=== PATIENT | female | born 1980 | race Caucasian/White ===

== ENCOUNTER 2018-07-20 07:44 | Day surgery (SDC) | payer MEDICAID ==
[2018-07-20] MEDS ORDERED: Midazolam 1 MG/ML 2 ML SDV IV ONE (07:45)
[2018-07-20] MEDS ORDERED: Neostigmine Methylsulfate 10 MG/10 ML MDV IV ONE (07:45)
[2018-07-20] MEDS ORDERED: Dexamethasone 4 MG/ML SDV IV ONE (07:45)
[2018-07-20] MEDS ORDERED: Glycopyrrolate 0.2 MG/ML 2 ML SDV IV ONE (07:45)
[2018-07-20] MEDS ORDERED: Propofol 200 MG/20 ML SDV IV ONE (07:45)
[2018-07-20] MEDS ORDERED: Rocuronium 100 MG/10 ML MDV IV ONE (07:45)
[2018-07-20] MEDS ORDERED: Lidocaine 2% 20 ML MDV INJECT ONE (07:45)
[2018-07-20] MEDS ORDERED: Ondansetron 4 MG/2 ML SDV IV ONE (07:45)
[2018-07-20] MEDS ORDERED: Ketorolac 30 MG/ML SDV IVPUSH ONE (07:45)
[2018-07-20] MEDS ORDERED: fentaNYL 100 MCG/2 ML SDV IV ONE (07:45)
[2018-07-20] MEDS ORDERED: Lactated Ringers 1,000 ML IV SCH (08:30)
[2018-07-20] MEDS ORDERED: Clindamycin Phosphate 600 MG/4 ML SDV ONE (09:55)
[2018-07-20] MEDS ORDERED: Sodium Chloride 0.9% 100 ML ONE (09:56)
[2018-07-20] MEDS ORDERED: Clindamycin Phosphate 600 MG in Sodium Chloride 0.9% 100 ML IV ONE (10:30)
[2018-07-20] MEDS ORDERED: Morphine 2 MG/ML Syringe IVPUSH PRN (11:56)
[2018-07-20] MEDS ORDERED: Ondansetron 4 MG/2 ML SDV IVPUSH PRN (11:56)
[2018-07-20] MEDS ORDERED: Sodium Chloride 0.9% 10 ML Syringe FLUSH PRN (12:07)
[2018-07-20] MEDS: Acetaminophen/oxyCODONE 325-5 MG Tab PO PRN (16:59)
--- NOTE | 2018-07-20 18:01 | OR ---
DATE: 07/20/2018 PREOPERATIVE DIAGNOSIS: Acalculous cholecystitis. Biliary colic with HIDA ejection fraction of 14%. POSTOPERATIVE DIAGNOSIS: Acalculous cholecystitis. Biliary colic with HIDA ejection fraction of 14%. PROCEDURE: Laparoscopic cholecystectomy. ANESTHESIA: General. ESTIMATED BLOOD LOSS: Minimal. SPECIMEN: Gallbladder. INDICATION FOR PROCEDURE: This 38-year-old female, who has had postprandial abdominal pain and nausea over the last year. Ultrasound does not show stones. However, HIDA ejection fraction of the gallbladder is 14%, 30 is lower limits of normal. PROCEDURE IN DETAIL: After adequate preparation. Infraumbilical incision was made. A Veress needle placed intra-abdominally for insufflation. Veress needle was exchanged for a 5-mm trocar, the 3 other trocars were placed in the abdomen under direct vision. Examination of the abdomen is normal. The gallbladder was small, thin-walled and blue in color. The cystic triangle structures were dissected free, and these were separately triply clipped and divided. The gallbladder was then taken off the liver bed using blunt sharp and Bovie dissection. There was some spillage of bile and at the apex of the gallbladder. This was suctioned clear. The gallbladder was brought out through the epigastric trocar site. The abdomen was desufflated, and the skin was closed with Monocryl. [facility] /[id number]
[2018-07-21] MEDS: Acetaminophen/oxyCODONE 325-5 MG Tab PO PRN ×2 (00:28→05:29)
== END 2018-07-21 09:55 | disposition home or self-care (01) ==
LOC: DL.SDS 07:44 → EDSTATUS 09:00 → DL.MS 12:01 → DL.SDS 07-21 09:55
PROVIDERS: ATTEND Surgery
DX: K81.1 Chronic cholecystitis (principal); Z88.0 Allergy status to penicillin; Z88.6 Allergy status to analgesic agent; Z88.1 Allergy status to other antibiotic agents; Z88.5 Allergy status to narcotic agent; Z88.2 Allergy status to sulfonamides
CPT/HCPCS: 47562; A9270; J1100; J1885; J2001; J2250; J2270; J2405; J2704; J2710; J3010; J3490; J7050; J7120

== ENCOUNTER 2018-12-01 07:59 | Day surgery (SDC) | payer MEDICAID ==
[~2018-12-01 07:59] MED LIST: Sodium Chloride 0.9% 10 ML Syringe FLUSH PRN
[2018-12-01] MEDS ORDERED: Clindamycin Phosphate 600 MG in Sodium Chloride 0.9% 100 ML IV ONE (08:00)
[2018-12-01] MEDS ORDERED: fentaNYL 100 MCG/2 ML SDV IV ONE (08:00)
[2018-12-01] MEDS ORDERED: Dexamethasone 4 MG/ML SDV IV ONE (08:00)
[2018-12-01] MEDS ORDERED: Ketorolac 30 MG/ML SDV IVPUSH ONE (08:00)
[2018-12-01] MEDS ORDERED: Lidocaine 1% 30 ML SDV INJECT ONE ×4 (08:00→12:54)
[2018-12-01] MEDS ORDERED: Lactated Ringers 1,000 ML IV ONE (08:00)
[2018-12-01] MEDS ORDERED: Propofol 200 MG/20 ML SDV IV ONE (08:00)
[2018-12-01] MEDS ORDERED: Ondansetron 4 MG/2 ML SDV IV ONE (08:00)
[2018-12-01] MEDS ORDERED: Midazolam 1 MG/ML 2 ML SDV IV ONE (08:00)
[2018-12-01] MEDS ORDERED: Bupivacaine 0.5% 30 ML SDV INJECT ONE ×4 (08:00→12:54)
[2018-12-01] MEDS ORDERED: Lactated Ringers 1,000 ML IV SCH (09:15)
[2018-12-01] MEDS ORDERED: Bupivacaine 0.5% 30 ML SDV ONE (09:24)
[2018-12-01] MEDS ORDERED: Lidocaine 1% 30 ML SDV ONE (09:24)
[2018-12-01] MEDS ORDERED: Acetaminophen/oxyCODONE 325-5 MG Tab PO PRN (13:08)
--- NOTE | 2018-12-01 13:11 | PCM.OPNOTE ---
- General Post-Op/Procedure Note Date of Surgery/Procedure: 12/01/18 Operative Procedure(s): left lateral ankle ligament repair/brostrom procedure, left 1st metatarsal bunionectomy/osteotomy, 5th metatarsal osteotomy/ bunionectomy. Pre Op Diagnosis: left ankle ligament tear ATFL, left foot painful bunion and tailors bunion Post-Op Diagnosis: chyna Anesthesia Technique: General LMA, Local Primary Surgeon: Lizabeth Segovia Anesthesia Provider: Kendall Fortune EBL in mLs: 50 Complications: none Condition: Good Free Text/Narrative:: Pt tolerated procedure well and was transported to recovery with vascualar status intact to left LE. Inman 3.5 bone anchor to fibula, 3.0 and 2.0 cannulated screws to bunionectomy sites. Well padded L&U splint applied with foot in slight eversion.
--- NOTE | 2018-12-02 12:11 | OR ---
DATE: 12/01/2018 PREOPERATIVE DIAGNOSES: 1. Left ankle ligament tear at the anterior talofibular ligament/ankle instability. 2. Left foot painful bunion. 3. Left foot painful tailor's bunion. POSTOPERATIVE DIAGNOSES: 1. Left ankle ligament tear at the anterior talofibular ligament/ankle instability. 2. Left foot painful bunion. 3. Left foot painful tailor's bunion. PROCEDURE PERFORMED: 1. Left ankle ligament repair/Brostrom procedure. 2. Left foot 1st metatarsal osteotomy/bunionectomy. 3. Left foot 5th metatarsal osteotomy/bunionectomy. ANESTHESIA: General LMA with a preoperative block of 20 mL of 1:1 mixture of 1% lidocaine plain and 0.5% Marcaine plain. TOURNIQUET TIME: 119 minutes, thigh tourniquet. ESTIMATED BLOOD LOSS: Minimal. SPECIMEN: None. COMPLICATIONS: None. INDICATIONS: Stella is a 38-year-old female who returns for recheck of her left ankle injury as well as foot pain. I have been seeing her for a couple of months for this injury. She has been doing physical therapy for the last 2 months with no relief, has had discussion that it possibly needed to get surgically repaired at this point. On July 27, she stepped into her room that had a little step and twisted the left ankle. She did go to the emergency room in [place]. They did an x-ray and placed her into an Wally wrap. The following Wednesday, it was still painful and swollen. She got another x-ray and was placed in a Cam boot with crutches. She then did get an MRI as well. She started transitioning out of the Cam boot into an ankle brace and also started physical therapy. Now, she is back in a regular shoe, but is still having a lot of pain and swelling to that ankle on the outside aspect. She also has a bunion and a tailor's bunion on that same foot that has been painful for several months now and worsening. She has tried different shoes and padding with no relief. X-rays of the left ankle reveal no signs of fracture, ankle mortise is intact. Bony fragment at the distal medial malleolus that has been present for a few years on prior x-rays. MRI of the left ankle reveals tear/rupture of the ATFL, no signs of fracture, chronic type of sprain of the deep deltoid without tear. Left foot views reveal bunion deformity present with intermetatarsal angle of 14 degrees, tailor's bunion with an intermetatarsal angle of 13 degrees. The patient voiced good understanding of the proposed procedure and possible complications and elects to have surgery at this time. DESCRIPTION OF PROCEDURE: The patient was taken to the operating room lying in a supine position. After adequate anesthesia induction as described above, the left foot and ankle were prepped and draped in the usual sterile fashion. A pneumatic thigh tourniquet was inflated to 250 mmHg. Attention was then directed to first the left ankle at the lateral aspect. A curvilinear incision was made just distal to the fibula at the lateral ankle and curving up towards the distal anterior foot. Care was taken to avoid the neurovascular bundle in this area. Sharp and blunt dissection was performed down to the level of the ankle joint capsule and inferior extensor retinaculum. Care was taken to avoid all neurovascular structures and cauterized all bleeders. It was noted that the ATFL was completely ruptured in this area. A 15 blade was used to incise the anterior and lateral ankle capsule down to the level of the peroneal tendon sheath. The tendons were visualized and appeared healthy without any tears or defects. The dissection was made in the layer the extensor retinaculum and the anterior ankle joint capsule. The periosteum was elevated from the distal fibula, and a curette and rongeur were used to create a gutter running transversely along the tip of the distal fibula down to good bleeding bone. A Aristides 3.5 Corkscrew anchor was then inserted from distal to proximal centered at the distal tip of the fibula. Care was taken to avoid entering the ankle joint or the peroneal tendon groove, and I was able to visualize this as well, and I did use fluoroscopy for that ankle view. Suture from the bone anchor was then used to suture the ATFL and anterior capsule and then secured them down to the fibula with the ankle held in an everted position. The suture was then again used to suture down the extensor retinaculum over the anterior ankle capsule for an additional stabilization to the fibula for reinforcement of the repair. The remainder of the suture was used to secure the periosteum of the fibula to the inferior retinaculum in a [id number] fashion with the foot held in an everted position throughout the procedure. The ankle was then tested and noted to be stable with inversion and talar tilt as well as anterior drawer. The area was then irrigated with copious amounts of sterile saline. Deep closure was completed with 3-0 Vicryl and skin closure was completed with 4- 0 nylon. Attention was then directed to the dorsal left foot at the 1st metatarsophalangeal joint where an approximately 6 cm linear incision was made. Sharp and blunt dissection was performed down to the level of joint capsule with care to gently retract all neurovascular bundles. An inverted-L capsulotomy was made, and the capsule was reflected to expose the distal 1st metatarsal. A hypertrophic medial eminence was noted at this time and was resected with a sagittal saw. Blunt dissection was performed in the 1st interspace to the level of the fibular sesamoid, and this was released from the adductor hallucis tendon. A sagittal saw was then used to make a Chevron-type osteotomy with a long dorsal arm, angulated in a fashion that would allow maintenance of the length upon lateral transposition of the capital fragment. The capital fragment was then laterally transposed 6 mm and impacted to bring the hallux in the near rectus alignment. A 0.062 inch K-wire was used for guidance. K-wires from the screw set were used as temporary fixation. Two partially-threaded cannulated [place] 3.0 screws were then inserted across the osteotomy site. The temporary fixation was removed. The osteotomy site was noted to be stable with axial valgus and varus forces applied with fluid range of motion of the 1st MTPJ. The 1st MTPJ was inspected, and there was a small defect at the plantar aspect, but otherwise healthy. Fluoroscopy was used throughout the procedure to verify proper reduction of deformity and screw fixation. The medial capsulorrhaphy was performed. The area was irrigated with copious amounts of sterile saline. Capsular closure was completed with 3-0 Vicryl and skin closure was completed with 4-0 nylon. The hallux was noted to be in a near rectus alignment at this time. Attention was then directed to the dorsal aspect of the 5th MTPJ where an approximately 4 cm linear incision was made. Sharp and blunt dissection was performed down to the level of the joint capsule with care to gently retract all neurovascular bundles. A linear capsulotomy was made, and the capsule was reflected to expose the distal 5th metatarsal. A hypertrophic lateral eminence was noted at this time and was resected with a sagittal saw. A sagittal saw was also used to make a chevron-type osteotomy at the 5th metatarsal. The capital fragment was transposed medially and impacted to bring the 5th toe in a near rectus alignment. A cannulated 2.0 [place] screw was inserted for fixation, and it was noted to be stable with all forces applied. Fluoroscopy was then again used to verify proper reduction and fixation. The area was then irrigated with copious amounts of sterile saline. Capsular closure was completed with 3-0 Vicryl and skin closure was completed with 4-0 nylon. The surgical sites were then dressed with Xeroform, fluffs, Webril, and a well-padded L and U splint with the foot in just slight eversion. The patient tolerated the procedure well and left the operating room for recovery with vital signs stable and in good condition with vascular status intact to the left foot as noted by immediate hyperemia upon deflation of the ankle tourniquet. The patient was then discharged home when she met hospital discharge requirements. [facility] /[id number]
== END 2018-12-01 16:19 | disposition home or self-care (01) ==
LOC: DL.SDS 07:59
PROVIDERS: ATTEND Podiatrist
DX: S93.492A Sprain of other ligament of left ankle, initial encounter (principal); M25.372 Other instability, left ankle; M21.612 Bunion of left foot; M21.622 Bunionette of left foot; E66.9 Obesity, unspecified; Z68.26 Body mass index [BMI] 26.0-26.9, adult; Z88.5 Allergy status to narcotic agent; Z88.6 Allergy status to analgesic agent; Z88.0 Allergy status to penicillin; Z88.2 Allergy status to sulfonamides; Z79.899 Other long term (current) drug therapy
CPT/HCPCS: 27698; 28110; 28296; 81025; C1713; J1100; J1885; J2001; J2250; J2405; J2704; J3010; J3490; J7050; J7120

== ENCOUNTER 2019-03-12 02:04 | Observation (INO) | payer MEDICAID ==
--- NOTE | 2019-03-12 02:02 | EDM.PDOC ---
ED HPI GENERAL MEDICAL PROBLEM - General Stated Complaint: AMBULANCE Time Seen by Provider: 03/12/19 02:00 Source of Information: Reports: Patient, EMS History Limitations: Reports: No Limitations - History of Present Illness INITIAL COMMENTS - FREE TEXT/NARRATIVE: EMS states was told CP onset tonight, en route pt would get very tense and O2 sat would drop. anxious female, states got up to bathroom tonight and suddenly felt nauseous and develop tightness & pain right lower chest area. then started feeling shaky & weak all over. Lower Chest Pain Score (Numeric/FACES): 5 - Related Data Allergies Allergy/AdvReac Type Severity Reaction Status Date / Time ampicillin Allergy Bronchospas Verified 12/01/18 08:16 ms ibuprofen Allergy Rash Verified 12/01/18 08:16 Milk Containing Products Allergy Hives Verified 12/01/18 08:16 Penicillins Allergy Bronchospas Verified 12/01/18 08:16 ms shrimp Allergy Anaphylactic Verified 12/01/18 08:16 Shock Sulfa (Sulfonamide Allergy Hives Verified 12/01/18 08:16 Antibiotics) Yeast Allergy Hives Verified 12/01/18 08:16 aspirin AdvReac Fever Verified 12/01/18 08:16 hydrocodone AdvReac Headache Verified 12/01/18 08:16 asprin related products Allergy Rash Uncoded 12/01/18 08:16 Home Meds: Home Meds Cetirizine [ZyrTEC] 10 mg PO .PRN 07/19/18 [History] Fluticasone Propionate [Flovent] 1 squirt NASBOTH .PRNBID 07/19/18 [History] Ibuprofen 400 mg PO .PRN 07/20/18 [History] Naproxen Sodium [Midol] 220 mg PO .PRN PRN 07/20/18 [History] Acetaminophen/Caffeine [Excedrin Tension Headache Cplt] 1 each PO .PRN PRN 11/30 [History] Amitriptyline [Elavil] 10 mg PO DAILY 11/30/18 [History] Multivitamin with Minerals [Multivitamins with Minerals] 1 tab PO DAILY [History] Past Medical History HEENT History: Reports: Sinusitis Other HEENT History: more seasonal Cardiovascular History: Reports: None Respiratory History: Reports: Asthma, Bronchitis, Recurrent, Other (See Below) Other Respiratory History: Asthma as a child Gastrointestinal History: Reports: GERD Genitourinary History: Reports: None [employer] History: Reports: Endometriosis Musculoskeletal History: Reports: Fracture, Other (See Below) Other Musculoskeletal History: sore joints. bone spur. right foot fracture. Ankle sprains. Ligament tear Left foot. bursitis right hip. 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 Oncologic (Cancer) History: Reports: None Dermatologic History: Reports: None - Infectious Disease History Infectious Disease History: Reports: None - Past Surgical History HEENT Surgical History: Reports: Naso-Sinus Surgery, Tonsillectomy, Other (See Below) Other HEENT Surgeries/Procedures: rhinoplasty for deviated septum Cardiovascular Surgical History: Reports: None GI Surgical History: Reports: Appendectomy, Cholecystectomy, Hernia, Inguinal, Other (See Below) Other GI Surgeries/Procedures: inguinal hernia repair Female Surgical History: Reports: Tubal Ligation, Other (See Below) Other Female Surgeries/Procedures: interutero laproscopy for IUD removal. bilateral tubal ligation Endocrine Surgical History: Reports: None Neurological Surgical History: Reports: None Musculoskeletal Surgical History: Reports: None Social & Family History - Family History Family Medical History: Noncontributory - Caffeine Use Caffeine Use: Reports: Coffee, Tea Caffeine Use Comment: coffee 1/2 pot daily. tea 0-3 16oz bottles day ED ROS GENERAL - Review of Systems Review Of Systems: Comprehensive ROS is negative, except as noted in HPI. ED EXAM, GENERAL - Physical Exam Exam: See Below Exam Limited By: No Limitations General Appearance: Alert, WD/WN, Anxious, Mild Distress, Other (tearful) Eye Exam: Bilateral Eye: PERRL (pupils ER @ 4mm) Ears: Hearing Grossly Normal Throat/Mouth: Normal Voice, No Airway Compromise Head: Atraumatic Neck: Non-Tender, Full Range of Motion Respiratory/Chest: No Respiratory Distress Cardiovascular: Regular Rate, Rhythm GI/Abdominal: Soft, Non-Tender Extremities: Other (weakness in arms and legs, needed help to get onto commode. unable to bear weight) Neurological: Alert, Oriented, Normal Cognition, No Motor/Sensory Deficits Psychiatric: Anxious, Tearful Skin Exam: Warm, Dry, Normal Color Lymphatic: No Adenopathy Course - Vital Signs Last Recorded V/S: Last Vital Signs Temp 37.2 C 03/12/19 03:54 Pulse 95 03/12/19 01:55 Resp 14 03/12/19 01:55 BP 125/79 03/12/19 01:55 Pulse Ox 98 03/12/19 01:55 - Orders/Labs/Meds Orders: Active Orders 24 hr Category Date Time Status EKG Documentation Completion [RC] STAT Care 03/12/19 02:03 Active Labs: Laboratory Tests 03/12/19 03/12/19 03/12/19 Range/Units 02:10 02:10 03:50 WBC 9.5 (5.0-10.0) 10^3/uL RBC 4.95 (4.2-5.4) 10^6/uL Hgb 14.9 (12.0-16.0) g/dL Hct 42.1 (37.0-47.0) % MCV 85.1 (80-100) fL MCH 30.1 (27.0-34.0) pg MCHC 35.4 H (33.0-35.0) g/dL Plt Count 187 (150-450) 10^3/uL Neut % (Auto) 62.1 (42.2-75.2) % Lymph % (Auto) 28.0 (20.5-50.1) % [place] % (Auto) 6.9 (2-8) % Eos % (Auto) 2.2 (1.0-3.0) % Baso % (Auto) 0.8 (0.0-1.0) % Sodium 135 (135-145) mmol/L Potassium 3.0 L (3.6-5.0) mmol/L Chloride 101 (101-111) mmol/L Carbon Dioxide 25.0 (21.0-31.0) mmol/L Anion Gap 12.0 BUN 12 (7-18) mg/dL Creatinine 0.7 (0.6-1.3) mg/dL Est Cr Clr Drug Dosing 100.01 mL/min Estimated GFR (MDRD) > 60 BUN/Creatinine Ratio 17.14 Glucose 104 (74-105) mg/dL Calcium 9.0 (8.4-10.2) mg/dl Total Bilirubin 0.6 (0.2-1.0) mg/dL AST 22 (10-42) IU/L ALT 27 (10-60) IU/L Alkaline Phosphatase 26 L (42-121) IU/L Troponin I < 0.02 (0.00-0.02) ng/ml Total Protein 6.6 L (6.7-8.2) g/dl Albumin 4.1 (3.2-5.5) g/dl Globulin 2.5 Albumin/Globulin Ratio 1.64 Urine Color Yellow (YELLOW) Urine Appearance Slightly cloudy (CLEAR) Urine pH 8.5 (5.0-9.0) Ur Specific Sargeant 1.015 (1.005-1.030) Urine Protein Negative (NEGATIVE) Urine Glucose (UA) Negative (NEGATIVE) Urine Ketones Negative (NEGATIVE) Urine Occult Blood Negative (NEGATIVE) Urine Nitrite Negative (NEGATIVE) Urine Bilirubin Negative (NEGATIVE) Urine Urobilinogen 0.2 (0.2-1.0) mg/dL Ur Leukocyte Esterase Negative (NEGATIVE) Urine HCG, Qual Urine Opiates Screen (NEGATIVE) Ur Oxycodone Screen (NEGATIVE) Urine Methadone Screen (NEGATIVE) Ur Barbiturates Screen (NEGATIVE) U Tricyclic Antidepress (NEGATIVE) Ur Phencyclidine Scrn (NEGATIVE) Ur Amphetamine Screen (NEGATIVE) U Methamphetamines Scrn (NEGATIVE) Urine MDMA Screen (NEGATIVE) U Benzodiazepines Scrn (NEGATIVE) Urine Cocaine Screen (NEGATIVE) U Marijuana (THC) Screen (NEGATIVE) Ethyl Alcohol < 5 mg/dL 03/12/19 03/12/19 Range/Units 03:50 03:50 WBC (5.0-10.0) 10^3/uL RBC (4.2-5.4) 10^6/uL Hgb (12.0-16.0) g/dL Hct (37.0-47.0) % MCV (80-100) fL MCH (27.0-34.0) pg MCHC (33.0-35.0) g/dL Plt Count (150-450) 10^3/uL Neut % (Auto) (42.2-75.2) % Lymph % (Auto) (20.5-50.1) % [place] % (Auto) (2-8) % Eos % (Auto) (1.0-3.0) % Baso % (Auto) (0.0-1.0) % Sodium (135-145) mmol/L Potassium (3.6-5.0) mmol/L Chloride (101-111) mmol/L Carbon Dioxide (21.0-31.0) mmol/L Anion Gap BUN (7-18) mg/dL Creatinine (0.6-1.3) mg/dL Est Cr Clr Drug Dosing mL/min Estimated GFR (MDRD) BUN/Creatinine Ratio Glucose (74-105) mg/dL Calcium (8.4-10.2) mg/dl Total Bilirubin (0.2-1.0) mg/dL AST (10-42) IU/L ALT (10-60) IU/L Alkaline Phosphatase (42-121) IU/L Troponin I (0.00-0.02) ng/ml Total Protein (6.7-8.2) g/dl Albumin (3.2-5.5) g/dl Globulin Albumin/Globulin Ratio Urine Color (YELLOW) Urine Appearance (CLEAR) Urine pH (5.0-9.0) Ur Specific Sargeant (1.005-1.030) Urine Protein (NEGATIVE) Urine Glucose (UA) (NEGATIVE) Urine Ketones (NEGATIVE) Urine Occult Blood (NEGATIVE) Urine Nitrite (NEGATIVE) Urine Bilirubin (NEGATIVE) Urine Urobilinogen (0.2-1.0) mg/dL Ur Leukocyte Esterase (NEGATIVE) Urine HCG, Qual Negative Urine Opiates Screen Negative (NEGATIVE) Ur Oxycodone Screen Negative (NEGATIVE) Urine Methadone Screen Negative (NEGATIVE) Ur Barbiturates Screen Negative (NEGATIVE) U Tricyclic Antidepress Negative (NEGATIVE) Ur Phencyclidine Scrn Negative (NEGATIVE) Ur Amphetamine Screen Negative (NEGATIVE) U Methamphetamines Scrn Negative (NEGATIVE) Urine MDMA Screen Negative (NEGATIVE) U Benzodiazepines Scrn Negative (NEGATIVE) Urine Cocaine Screen Negative (NEGATIVE) U Marijuana (THC) Screen Negative (NEGATIVE) Ethyl Alcohol mg/dL Meds: Medications Discontinued Medications Generic Name Dose Route Start Last Admin Trade Name Freq PRN Reason Stop Dose Admin Potassium Chloride 40 meq 03/12/19 02:59 03/12/19 03:10 Klor-Con 10 PO 03/12/19 03:00 40 meq ONETIME ONE Administration - Re-Assessments/Exams Free Text/Narrative Re-Assessment/Exam: 03/12/19 03:05 results discussed with pt who states her guillian barre is acting up since she has numbness in both upper & lower limbs and can't move them. spouse states last time pt was this weak was about 3 years ago that began with a cluster migraine and was admitted at . 03/12/19 04:[address] De Leon who kindly admitted pt to observation. Departure - Departure Time of Disposition: 04:17 Disposition: Refer to Observation Condition: Good Clinical Impression: Guillain-[place]un[place] syndrome, Hypokalemia, Atypical chest pain Forms: ED Department Discharge - My Orders Last 24 Hours: My Active Orders 03/12/19 02:03 EKG Documentation Completion [RC] STAT - Assessment/Plan Last 24 Hours: My Active Orders 03/12/19 02:03 EKG Documentation Completion [RC] STAT
[2019-03-12 02:38] LABS: CHLORIDE,CL 101 mmol/L (101-111); SODIUM,NA 135 mmol/L (135-145)
[2019-03-12] MEDS ORDERED: Potassium Chloride 10 MEQ Tab.ER PO ONE (02:59)
[2019-03-12] MEDS ORDERED: CAFFEINE PO PRN (05:16)
[2019-03-12] MEDS ORDERED: [UNRECOGNIZED DRUG - OTHER] PO PRN (05:16)
[2019-03-12] MEDS ORDERED: ACETAMINOPHEN PO PRN (05:16)
--- NOTE | 2019-03-12 05:49 | PCM.HP ---
H&P History of Present Illness - General Date of Service: 03/12/19 Admit Problem/Dx: Admission Diagnosis/Problem Admission Diagnosis/Problem Generalized weakness - History of Present Illness Initial Comments - Free Text/Narative: Ms. 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 Patient said that she woke up from her sleep with epigastric pain that she described as twisting. She is concerned that she will throw up therefore she went to the bathroom. Patient felt that her arms became very weak and that was followed by generalized weakness and numbness. Patient did not throw up. She was brought to the emergency room for further care. Of note, patient said that she was given aspirin without much improvement, and pain continued till now. Lab work was remarkable for hypokalemia potassium of 3 , chest x-ray is negative and CT head was negative. Given inability to transfer , patient will be observed in the hospital. On interview, patient said that he is able to move her hand little better. Continues to feel discomfort in her epigastrium but no nausea or vomiting. Lower Chest Pain Score (Numeric/FACES): 5 - Related Data Allergies/Adverse Reactions: Allergies Allergy/AdvReac Type Severity Reaction Status Date / Time ampicillin Allergy Bronchospas Verified 03/12/19 04:40 ms ibuprofen Allergy Rash Verified 03/12/19 04:40 Milk Containing Products Allergy Hives Verified 03/12/19 04:40 Penicillins Allergy Bronchospas Verified 03/12/19 04:40 ms shrimp Allergy Anaphylactic Verified 03/12/19 04:40 Shock Sulfa (Sulfonamide Allergy Hives Verified 03/12/19 04:40 Antibiotics) Yeast Allergy Hives Verified 03/12/19 04:40 aspirin AdvReac Fever Verified 03/12/19 04:40 hydrocodone AdvReac Headache Verified 03/12/19 04:40 asprin related products Allergy Rash Uncoded 03/12/19 04:40 Home Medications: Home Meds Cetirizine [ZyrTEC] 10 mg PO .PRN 07/19/18 [History] Fluticasone Propionate [Flovent] 1 squirt NASBOTH .PRNBID 07/19/18 [History] Ibuprofen 400 mg PO .PRN 07/20/18 [History] Naproxen Sodium [Midol] 220 mg PO .PRN PRN 07/20/18 [History] Acetaminophen/Caffeine [Excedrin Tension Headache Cplt] 1 each PO .PRN PRN 11/30 [History] Amitriptyline [Elavil] 10 mg PO DAILY 11/30/18 [History] Multivitamin with Minerals [Multivitamins with Minerals] 1 tab PO DAILY [History] Past Medical History HEENT History: Reports: Sinusitis Other HEENT History: more seasonal Cardiovascular History: Reports: None Respiratory History: Reports: Asthma, Bronchitis, Recurrent, Other (See Below) Other Respiratory History: Asthma as a child Gastrointestinal History: Reports: GERD Genitourinary History: Reports: None 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 bone spur. right foot fracture. Ankle sprains. Ligament tear Left foot. bursitis right hip. 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 Oncologic (Cancer) History: Reports: None Dermatologic History: Reports: None - Infectious Disease History Infectious Disease History: Reports: None - Past Surgical History HEENT Surgical History: Reports: Naso-Sinus Surgery, Tonsillectomy, Other (See Below) Other HEENT Surgeries/Procedures: rhinoplasty for deviated septum Cardiovascular Surgical History: Reports: None GI Surgical History: Reports: Appendectomy, Cholecystectomy, Hernia, Inguinal, Other (See Below) Other GI Surgeries/Procedures: inguinal hernia repair Female Surgical History: Reports: Tubal Ligation, Other (See Below) Other Female Surgeries/Procedures: interutero laproscopy for IUD removal. bilateral tubal ligation Endocrine Surgical History: Reports: None Neurological Surgical History: Reports: None Musculoskeletal Surgical History: Reports: None Social & Family History - Family History Family Medical History: Noncontributory - Tobacco Use Smoking Status *Q: Former Smoker Used Tobacco, but Quit: Yes Month/Year Tobacco Last Used: 8 yrs ago Second Hand Smoke Exposure: No - Caffeine Use Caffeine Use: Reports: Coffee Caffeine Use Comment: coffee 1/2 pot daily. tea 0-3 16oz bottles day - Recreational Drug Use Recreational Drug Use: No H&P Review of Systems - Review of Systems: Review Of Systems: Comprehensive ROS is negative, except as noted in HPI. Exam - Exam Exam: See Below - Vital Signs Vital Signs: Last Vital Signs Temp 37.1 C 03/12/19 04:30 Pulse 90 03/12/19 04:30 Resp 16 03/12/19 04:30 BP 136/68 03/12/19 04:30 Pulse Ox 96 03/12/19 04:30 Weight: 75.75 kg - Exam General: Alert, Oriented Lungs: Clear to Auscultation, Normal Respiratory Effort Cardiovascular: Regular Rate, Regular Rhythm GI/Abdominal Exam: Normal Bowel Sounds, Soft, Non-Tender Extremities: Normal Inspection, No Pedal Edema Skin: Warm, Dry, Intact Neuro Extensive - Mental Status: Alert, Other (Unclear if patient is fully participating in exam. 1 out of 5 strength in all limbs, slightly able to squeeze her hand on the right, better than the left) Psychiatric: Alert, Anxious - Patient Data Lab Results Last 24 hrs: Laboratory Results - last 24 hr 03/12/19 03/12/19 03/12/19 Range/Units 02:10 02:10 03:50 WBC 9.5 (5.0-10.0) 10^3/uL RBC 4.95 (4.2-5.4) 10^6/uL Hgb 14.9 (12.0-16.0) g/dL Hct 42.1 (37.0-47.0) % MCV 85.1 (80-100) fL MCH 30.1 (27.0-34.0) pg MCHC 35.4 H (33.0-35.0) g/dL Plt Count 187 (150-450) 10^3/uL Neut % (Auto) 62.1 (42.2-75.2) % Lymph % (Auto) 28.0 (20.5-50.1) % [place] % (Auto) 6.9 (2-8) % Eos % (Auto) 2.2 (1.0-3.0) % Baso % (Auto) 0.8 (0.0-1.0) % Sodium 135 (135-145) mmol/L Potassium 3.0 L (3.6-5.0) mmol/L Chloride 101 (101-111) mmol/L Carbon Dioxide 25.0 (21.0-31.0) mmol/L Anion Gap 12.0 BUN 12 (7-18) mg/dL Creatinine 0.7 (0.6-1.3) mg/dL Est Cr Clr Drug Dosing 100.01 mL/min Estimated GFR (MDRD) > 60 BUN/Creatinine Ratio 17.14 Glucose 104 (74-105) mg/dL Calcium 9.0 (8.4-10.2) mg/dl Total Bilirubin 0.6 (0.2-1.0) mg/dL AST 22 (10-42) IU/L ALT 27 (10-60) IU/L Alkaline Phosphatase 26 L (42-121) IU/L Troponin I < 0.02 (0.00-0.02) ng/ml Total Protein 6.6 L (6.7-8.2) g/dl Albumin 4.1 (3.2-5.5) g/dl Globulin 2.5 Albumin/Globulin Ratio 1.64 Urine Color Yellow (YELLOW) Urine Appearance Slightly cloudy (CLEAR) Urine pH 8.5 (5.0-9.0) Ur Specific [place] 1.015 (1.005-1.030) Urine Protein Negative (NEGATIVE) Urine Glucose (UA) Negative (NEGATIVE) Urine Ketones Negative (NEGATIVE) Urine Occult Blood Negative (NEGATIVE) Urine Nitrite Negative (NEGATIVE) Urine Bilirubin Negative (NEGATIVE) Urine Urobilinogen 0.2 (0.2-1.0) mg/dL Ur Leukocyte Esterase Negative (NEGATIVE) Urine HCG, Qual Urine Opiates Screen (NEGATIVE) Ur Oxycodone Screen (NEGATIVE) Urine Methadone Screen (NEGATIVE) Ur Barbiturates Screen (NEGATIVE) U Tricyclic Antidepress (NEGATIVE) Ur Phencyclidine Scrn (NEGATIVE) Ur Amphetamine Screen (NEGATIVE) U Methamphetamines Scrn (NEGATIVE) Urine MDMA Screen (NEGATIVE) U Benzodiazepines Scrn (NEGATIVE) Urine Cocaine Screen (NEGATIVE) U Marijuana (THC) Screen (NEGATIVE) Ethyl Alcohol < 5 mg/dL 03/12/19 03/12/19 Range/Units 03:50 03:50 WBC (5.0-10.0) 10^3/uL RBC (4.2-5.4) 10^6/uL Hgb (12.0-16.0) g/dL Hct (37.0-47.0) % MCV (80-100) fL MCH (27.0-34.0) pg MCHC (33.0-35.0) g/dL Plt Count (150-450) 10^3/uL Neut % (Auto) (42.2-75.2) % Lymph % (Auto) (20.5-50.1) % [place] % (Auto) (2-8) % Eos % (Auto) (1.0-3.0) % Baso % (Auto) (0.0-1.0) % Sodium (135-145) mmol/L Potassium (3.6-5.0) mmol/L Chloride (101-111) mmol/L Carbon Dioxide (21.0-31.0) mmol/L Anion Gap BUN (7-18) mg/dL Creatinine (0.6-1.3) mg/dL Est Cr Clr Drug Dosing mL/min Estimated GFR (MDRD) BUN/Creatinine Ratio Glucose (74-105) mg/dL Calcium (8.4-10.2) mg/dl Total Bilirubin (0.2-1.0) mg/dL AST (10-42) IU/L ALT (10-60) IU/L Alkaline Phosphatase (42-121) IU/L Troponin I (0.00-0.02) ng/ml Total Protein (6.7-8.2) g/dl Albumin (3.2-5.5) g/dl Globulin Albumin/Globulin Ratio Urine Color (YELLOW) Urine Appearance (CLEAR) Urine pH (5.0-9.0) Ur Specific [place] (1.005-1.030) Urine Protein (NEGATIVE) Urine Glucose (UA) (NEGATIVE) Urine Ketones (NEGATIVE) Urine Occult Blood (NEGATIVE) Urine Nitrite (NEGATIVE) Urine Bilirubin (NEGATIVE) Urine Urobilinogen (0.2-1.0) mg/dL Ur Leukocyte Esterase (NEGATIVE) Urine HCG, Qual Negative Urine Opiates Screen Negative (NEGATIVE) Ur Oxycodone Screen Negative (NEGATIVE) Urine Methadone Screen Negative (NEGATIVE) Ur Barbiturates Screen Negative (NEGATIVE) U Tricyclic Antidepress Negative (NEGATIVE) Ur Phencyclidine Scrn Negative (NEGATIVE) Ur Amphetamine Screen Negative (NEGATIVE) U Methamphetamines Scrn Negative (NEGATIVE) Urine MDMA Screen Negative (NEGATIVE) U Benzodiazepines Scrn Negative (NEGATIVE) Urine Cocaine Screen Negative (NEGATIVE) U Marijuana (THC) Screen Negative (NEGATIVE) Ethyl Alcohol mg/dL Result Diagrams: 03/12/19 02:10 03/12/19 02:10 Problem List Initiated/Reviewed/Updated: Yes Orders Last 24hrs: Active Orders 24 hr Category Date Time Status Admission Diagnosis [ADT] Stat ADT 03/12/19 04:19 Ordered Admission Status [Patient Status] [ADT] Routine ADT 03/12/19 04:19 Active Patient Status [ADT] Routine ADT 03/12/19 05:13 Active Oxygen Therapy [RC] PRN Care 03/12/19 05:13 Active Up With Assistance [RC] ASDIRECTED Care 03/12/19 05:13 Active VTE/DVT Education [RC] PER UNIT ROUTINE Care 03/12/19 05:13 Active Vital Signs [RC] Q4H Care 03/12/19 05:13 Active Nothing per Oral Now Diet [DIET] Diet 03/12/19 Breakfast Active Acetaminophen/Caffeine [Excedrin Tension Headache Cplt] Med 03/12/19 05:16 Pending 1 each PO .PRN PRN Amitriptyline [Elavil] Med 03/12/19 09:00 Pending 10 mg PO DAILY Heparin Sodium Med 03/12/19 06:00 Active 5,000 units SUBCUT Q8HR Sodium Chloride 0.9% [Normal Saline] 1,000 ml Med 03/12/19 05:15 Active IV ASDIRECTED Resuscitation Status Routine Resus Stat 03/12/19 05:13 Ordered Medication Orders Amitriptyline HCl (Elavil) 10 mg PO DAILY IAM Heparin Sodium (Porcine) (Heparin Sodium) 5,000 units SUBCUT Q8HR IAM Sodium Chloride (Normal Saline) 1,000 mls @ 125 mls/hr IV ASDIRECTED IAM Non-Formulary Medication (Acetaminophen/Caffeine [Excedrin Tension Headache Cplt ]) 1 each PO .PRN PRN PRN Reason: Pain Assessment/Plan Comment:: Generalized weakness Unclear etiology, psychogenic versus CIDP flare We will need to transfer patient to [place] to see her primary neurologist No evidence of any respiratory compromise at this point Hypokalemia Potassium repleted Depression Continue amitriptyline Epigastric discomfort Troponin initially was negative, will repeat We will give patient Protonix DVT prophylaxis Heparin
[2019-03-12] MEDS: Sodium Chloride 0.9% 1,000 ML IV SCH ×2 (06:04→14:29)
[2019-03-12] MEDS: Heparin Sodium 5,000 Units/ML Vial SUBCUT SCH ×3 (06:09→21:31)
[2019-03-12] MEDS: Pantoprazole 40 MG Tab.CR PO SCH (06:35)
[2019-03-12] MEDS ORDERED: Acetaminophen 325 MG Tab PO PRN (12:57)
[2019-03-12] MEDS ORDERED: Amitriptyline 10 MG Tab PO SCH (20:00)
[2019-03-12] MEDS ORDERED: Sodium Chloride 0.9% 10 ML Syringe FLUSH PRN (21:29)
[2019-03-13] MEDS: Heparin Sodium 5,000 Units/ML Vial SUBCUT SCH (05:54)
[2019-03-13] MEDS: Pantoprazole 40 MG Tab.CR PO SCH (06:27)
--- NOTE | 2019-03-13 10:07 | PCM.DCSUM1 ---
Discharge Summary - Hospital Course Free Text/Narrative:: Ms. Moore is a 38-year-old female with past medical history significant for possible Guillain Casa/CIDP who presented to the emergency room with generalized weakness. Patient said that she woke up from her sleep with epigastric pain that she described as twisting. She is concerned that she will throw up therefore she went to the bathroom. Patient felt that her arms became very weak and that was followed by generalized weakness and numbness. Patient did not throw up. She was brought to the emergency room for further care. Of note, patient said that she was given aspirin without much improvement, and pain continued till now. Lab work was remarkable for hypokalemia potassium of 3 , chest x-ray is negative and CT head was negative. Given inability to transfer , patient will be observed in the hospital. On interview, patient said that he is able to move her hand little better. Continues to feel discomfort in her epigastrium but no nausea or vomiting. Patient strength improves spontaneously , but did not return to baseline. Case was discussed with Dr. palmer who suggested close outpatient follow-up, and patient was discharged and she will go to see Dr. palmer following discharge. She is in stable condition. - Discharge Data Discharge Date: 03/13/19 Discharge Disposition: Home, Self-Care 01 Condition: Stable - Referral to Home Health Primary Care Physician: Rox Guerrero PA-C - Discharge Plan *PRESCRIPTION DRUG MONITORING PROGRAM REVIEWED*: Not Applicable *COPY OF PRESCRIPTION DRUG MONITORING REPORT IN PATIENT DANIELLE: Not Applicable Home Medications: Home Meds Cetirizine [ZyrTEC] 10 mg PO .PRN 07/19/18 [History] Fluticasone Propionate [Flovent] 1 squirt NASBOTH .PRNBID 07/19/18 [History] Ibuprofen 400 mg PO .PRN 07/20/18 [History] Naproxen Sodium [Midol] 220 mg PO .PRN PRN 07/20/18 [History] Acetaminophen/Caffeine [Excedrin Tension Headache Cplt] 1 each PO .PRN PRN 11/30 [History] Amitriptyline [Elavil] 10 mg PO .2000 11/30/18 [History] Multivitamin with Minerals [Multivitamins with Minerals] 1 tab PO DAILY [History] Patient Handouts: Guillain-Casa Syndrome Referrals: Rox Guerrero PA-C [Primary Care Provider] - - Discharge Summary/Plan Comment DC Time >30 min.: Yes - General Info Date of Service: 03/13/19 Admission Dx/Problem (Free Text: Strength is improving. She did not return to baseline yet. - Patient Data Vitals - Most Recent: Last Vital Signs Temp 36.5 C 03/13/19 07:48 Pulse 76 03/13/19 07:48 Resp 16 03/13/19 07:48 BP 108/70 03/13/19 07:48 Pulse Ox 99 03/13/19 07:48 Weight - Most Recent: 75.75 kg I&O - Last 24 hours: Intake & Output 03/12/19 03/13/19 03/13/19 22:59 06:59 14:59 Intake Total 590 Output Total 1000 Balance 590 -1000 Med Orders - Current: Current Medications Acetaminophen (Tylenol) 650 mg PO Q6H PRN PRN Reason: Pain (mild 1-3) Last Admin: 03/12/19 19:24 Dose: 650 mg Amitriptyline HCl (Elavil) 10 mg PO DAILY@1999 [facility] Last Admin: 03/12/19 19:51 Dose: 10 mg Heparin Sodium (Porcine) (Heparin Sodium) 5,000 units SUBCUT Q8HR [facility] Last Admin: 03/13/19 05:54 Dose: 5,000 units Non-Formulary Medication (Acetaminophen/Caffeine [Excedrin Tension Headache Cplt ]) 1 each PO .PRN PRN PRN Reason: Pain Pantoprazole Sodium (Protonix) 40 mg PO ACBREAKFAST [facility] Last Admin: 03/13/19 06:27 Dose: Not Given Sodium Chloride (Saline Flush) 10 ml FLUSH ASDIRECTED PRN PRN Reason: Keep Vein Open Discontinued Medications Sodium Chloride (Normal Saline) 1,000 mls @ 125 mls/hr IV ASDIRECTED [facility] Last Admin: 03/12/19 14:29 Dose: 125 mls/hr Potassium Chloride (Klor-Con 10) 40 meq PO ONETIME ONE Stop: 03/12/19 03:00 Last Admin: 03/12/19 03:10 Dose: 40 meq - Exam General: Reports: Alert, Oriented Lungs: Reports: Clear to Auscultation, Normal Respiratory Effort Cardiovascular: Reports: Regular Rate, Regular Rhythm GI/Abdominal Exam: Normal Bowel Sounds, Soft, Non-Tender, No Distention Extremities: No Pedal Edema Skin: Reports: Warm, Dry, Intact Neurological: Reports: Other (3 out of 5 strength in upper extremities. Ob Nurse strength improving.)
== END 2019-03-13 10:28 | disposition home or self-care (01) ==
LOC: DL.ED 02:04 → DL.MS 04:19
PROVIDERS: ADMIT Internal Medicine; ATTEND Internal Medicine
DX: R53.1 Weakness (principal); E87.6 Hypokalemia; F32.9 Major depressive disorder, single episode, unspecified; R10.13 Epigastric pain; G43.909 Migraine, unspecified, not intractable, without status migrainosus; E66.9 Obesity, unspecified; Z79.899 Other long term (current) drug therapy; Z88.0 Allergy status to penicillin; Z88.8 Allergy status to other drugs, medicaments and biological substances; Z91.011 Allergy to milk products; Z91.013 Allergy to seafood; Z88.2 Allergy status to sulfonamides; Z91.018 Allergy to other foods; Z88.6 Allergy status to analgesic agent; Z88.5 Allergy status to narcotic agent; Z87.891 Personal history of nicotine dependence
CPT/HCPCS: 36415; 70450; 71045; 80053; 80305; 80320; 81003; 81025; 84484; 85025; 93005; 96361; 96372; 99285; A9270; G0378; J1644; J7030; G0480

== ENCOUNTER 2020-10-22 06:28 | Day surgery (SDC) | payer MEDICAID ==
[~2020-10-22 06:28] MED LIST changes: +Midazolam 1 MG/ML 2 ML SDV ONE; -Sodium Chloride 0.9% 10 ML Syringe FLUSH PRN; +fentaNYL 100 MCG/2 ML SDV ONE
[2020-10-22] MEDS ORDERED: Midazolam 1 MG/ML 2 ML SDV IV ONE ×3 (06:29→08:22)
[2020-10-22] MEDS ORDERED: fentaNYL 100 MCG/2 ML SDV IV ONE ×3 (06:29→08:21)
[2020-10-22] MEDS ORDERED: Sodium Chloride 0.9% 10 ML Syringe FLUSH PRN (06:43)
[2020-10-22] MEDS ORDERED: Dextrose 5%-0.45% NaCl 1,000 ML IV SCH (06:45)
--- NOTE | 2020-10-22 10:12 | OR ---
DATE: 10/22/2020 PROCEDURES: Esophagogastroduodenoscopy and multiple pinch biopsies. INSTRUMENT USED: [id number]-HQ190 Olympus video panendoscope. PREMEDICATIONS: No oral or topical anesthesia used. Fentanyl 100 mcg intravenous, Versed 2 mg intravenous, nasal O2 cannula. The procedure was done under pulse oximetry, BP recording, and monitoring tech. INDICATION: The patient with persistent dysphagia as well as dyspepsia, unexplained and not responsive to medical measures. Esophagogastroduodenoscopy is performed for detection of any active erosive lesions, Ruiz esophagus and/or malignancy also under consideration, H pylori status to be determined, biopsies to be obtained for eosonophilic esophagitis if indicated, esophageal dilatations if indicated, endoscopic hemostasis therapy if needed. PROCEDURE IN DETAIL: The scope was passed with ease. Adequate visualization of the esophagus was made from proximal to distal areas. No upper esophageal lesions identified. No distal esophageal stricture. No uphill or downhill esophageal varices. No Perla-Gooden tear. No evidence of erosive esophagitis by Los-Cecile criteria. No esophageal polyp or tumor mass identified. Z-line was seen at around 39 cm distal to the oral verge. No proximal gastric varices noted. Gastric fundus examination by retroflexion showed no polypoid lesions. No gastric ulcer, malignant mass, or vascular ectasia identified. Duodenal bulb showed no ulcer. Visualized second part of the duodenum was unremarkable. Multiple pinch biopsies were obtained from the gastric antrum and proximal body and sent for PyloriTek test for H pylori and histopathology. Four-quadrant biopsies were taken from the distal and proximal esophagus and sent for any histopathologic evidence of eosinophilic esophagitis. No bleeding was noted from any of the visualized areas at the completion of examination. Photographs were taken of the duodenal bulb, gastric antrum, fundus, and distal esophagus. IMPRESSION: Normal study. The patient tolerated the procedure well. [facility] /[id number]
--- NOTE | 2020-10-22 11:13 | LETTER ---
10/22/2020 RE: AMRO NARA COSTA : 1980 Cristina Valdes MD [facility], [place] [address] Valdes: Ms. Nara Moore had esophagogastroduodenoscopy done this morning, and she tolerated the procedure well. I herewith send a copy of the endoscopy note and photographs for your review. Thank you. Sincerely, [facility] /[id number]
== END 2020-10-22 10:30 | disposition home or self-care (01) ==
LOC: DL.ENDO 06:28
PROVIDERS: ATTEND Internal Medicine Gastroenterology
DX: K29.50 Unspecified chronic gastritis without bleeding (principal); B96.81 Helicobacter pylori [H. pylori] as the cause of diseases classified elsewhere; J45.909 Unspecified asthma, uncomplicated; R13.10 Dysphagia, unspecified; Z98.890 Other specified postprocedural states; Z90.49 Acquired absence of other specified parts of digestive tract; Z88.9 Allergy status to unspecified drugs, medicaments and biological substances
CPT/HCPCS: 43239; 87077; J2250; J3010; J7042

== ENCOUNTER 2021-01-06 05:34 | Day surgery (SDC) | payer MEDICAID ==
[~2021-01-06 05:34] MED LIST changes: +Dextrose 5%-0.45% NaCl 1,000 ML IV SCH; +Sodium Chloride 0.9% 10 ML Syringe FLUSH PRN
[2021-01-06] MEDS ORDERED: Midazolam 1 MG/ML 2 ML SDV IV ONE ×7 (05:35→07:32)
[2021-01-06] MEDS ORDERED: fentaNYL 100 MCG/2 ML SDV IV ONE ×4 (05:35→07:34)
--- NOTE | 2021-01-06 13:40 | OR ---
DATE: 01/06/2021 PROCEDURE: Total colonoscopy. INSTRUMENT USED: [id number]-[id number] Olympus video colonoscope. PREMEDICATIONS: Fentanyl 150 mcg intravenous, Versed 4 mg intravenous. Nasal O2 cannula. The procedure was done under pulse oximetry, BP recording, and cardiac monitoring. INDICATIONS: The patient with progressive constipation and abdominal pain unexplained, not responsive to medical measures. Colonoscopic examination is done for detection of any polypoid lesions and removal, endoscopic hemostasis therapy if needed. DESCRIPTION OF PROCEDURE: Initial rectal exam was unremarkable. Rigid anoscopy was normal. The colonoscope was passed with ease up to the ileocecal area. Photographs were taken of the normal-appearing cecum, identified by appendiceal orifice and double-bulged ileocecal folds. No bleeding was noted from any of the visualized areas at the commencement of the examination. There was moderate amount of fecal material that had to be aspirated. Bowel preparation was found to be adequate, [place] scale 2 in right and left colon, 3 in transverse colon, total score 7. No stricture, no vascular ectasia. No large isolated ulcerations seen. No evidence of diffuse inflammatory bowel disease in the form of friability, contact bleeding, or ulcerations. No polyp or tumor mass identified. Probing the proximal sides of folds and flexures using adequate distention and clearing up the stool material, withdrawal of the scope was made, cecum to rectum time over 6 minutes. No bleeding was noted from any of the visualized areas at the completion of examination. IMPRESSION: Normal study. The patient tolerated the procedure well. [facility] /[id number]
--- NOTE | 2021-01-07 09:01 | LETTER ---
01/06/2021 Cristina Valdes MD [address] [place] [id number] RE: AMOR STELLA COSTA : [address] Valdes: Stellajennifer Moore had colonoscopic examination done this morning, and she tolerated the procedure well. I herewith send a copy of the endoscopy note and photographs for your review. Thank you. Sincerely, [facility] /[id number]
== END 2021-01-06 09:45 | disposition home or self-care (01) ==
LOC: DL.ENDO 05:34
PROVIDERS: ATTEND Internal Medicine Gastroenterology
DX: K59.09 Other constipation (principal); K21.9 Gastro-esophageal reflux disease without esophagitis; F41.1 Generalized anxiety disorder; Z98.890 Other specified postprocedural states; Z90.49 Acquired absence of other specified parts of digestive tract; Z01.812 Encounter for preprocedural laboratory examination; Z20.822 Contact with and (suspected) exposure to COVID-19
CPT/HCPCS: 45378; 87635; J2250; J3010; J7042; U0002

== ENCOUNTER 2022-06-29 21:19 | Emergency (ER) | payer BC, OTHER, MEDICAID | END 2022-06-29 23:15 | disposition home or self-care (01) | LOC: DL.ED 21:19 | DX: S90.32XA Contusion of left foot, initial encounter (principal); E66.9 Obesity, unspecified; Z68.24 Body mass index [BMI] 24.0-24.9, adult; Z88.0 Allergy status to penicillin; Z91.018 Allergy to other foods; Z88.2 Allergy status to sulfonamides; Z88.6 Allergy status to analgesic agent; Z91.011 Allergy to milk products; Z88.8 Allergy status to other drugs, medicaments and biological substances; Z88.5 Allergy status to narcotic agent; W00.0XXA Fall on same level due to ice and snow, initial encounter | CPT/HCPCS: 73620-LT; 99283 ==

== ENCOUNTER 2024-06-16 22:32 | Emergency (ER) | payer BC, MEDICAID, OTHER ==
[2024-06-16] MEDS: Morphine 4 MG/ML Syringe IVPUSH ONE (23:28)
[2024-06-16] MEDS: Ondansetron 4 MG/2 ML SDV IVPUSH ONE (23:28)
[2024-06-16] MEDS: Lactated Ringers 1,000 ML IV ONE (23:40)
[2024-06-16 23:50] LABS: BASOPHILS PERCENT AUTO 0.6 % (0.0-1.0); HEMATOCRIT 41.3 % (37.0-47.0); HEMOGLOBIN 14.4 g/dL (12.0-16.0); LYMPHOCYTES PERCENT AUTO 20.8 % (20.5-50.1); MEAN CORPUSCULAR HEMOGLOBIN 30.5 pg (27.0-34.0); MEAN CORPUSCULAR HGB CONC 34.9 g/dL (33.0-35.0); MEAN CORPUSCULAR VOLUME 87.5 fL (80-100); NEUTROPHILS PERCENT AUTO 67.6 % (42.2-75.2); PLATELET COUNT,PLT 246 10^3/uL (150-450); RED BLOOD CELL COUNT 4.72 10^6/uL (4.2-5.4); WHITE BLOOD CELL COUNT,WBC 8.3 10^3/uL (5.0-10.0)
[2024-06-16 23:52] LABS: APPEARANCE,URINE CLEAR (CLEAR); BILIRUBIN,URINE NEGATIVE (NEGATIVE); COLOR,URINE YELLOW (YELLOW); GLUCOSE,URINE NEGATIVE (NEGATIVE); KETONES,URINE NEGATIVE (NEGATIVE); LEUKOCYTE ESTERASE,URINE NEGATIVE (NEGATIVE); NITRITE,URINE NEGATIVE (NEGATIVE); OCCULT BLOOD,URINE MODERATE (NEGATIVE); PROTEIN,URINE NEGATIVE (NEGATIVE); UROBILINOGEN,URINE 0.2 mg/dL (0.2-1.0)
[2024-06-17 00:01] LABS: A/G RATIO 1.1; ALBUMIN 3.8 g/dL (3.4-5.0); ANION GAP 14.4 mEq/L (7-13); BILIRUBIN TOTAL 0.6 mg/dL (0.2-1.0); BUN/CREATININE RATIO 18.2 (No establ ref range); CALCIUM 9.1 mg/dL (8.5-10.1); CREATININE 0.99 mg/dL (0.55-1.02); EST CRCL DRUG DOSING (CG) 66.47 mL/min; MAGNESIUM 1.9 mg/dL (1.8-2.4); POTASSIUM,K 4.4 mmol/L (3.5-5.1); PROTEIN TOTAL,TP 7.2 g/dL (6.4-8.2)
[2024-06-17 00:17] LABS: RBC,URINE 30-40 /HPF (0-5)
[2024-06-17 00:18] LABS: BACTERIA,URINE FEW /HPF (0-FEW/HPF); EPITHELIAL CELLS,URINE FEW /HPF (NOT SEEN); MUCUS,URINE FEW /LPF (NOT SEEN); WBC,URINE 0-5 /HPF (0-5/HPF)
== END 2024-06-17 07:21 ==
LOC: DL.ED 22:32
DX: N13.2 Hydronephrosis with renal and ureteral calculous obstruction (principal); E66.9 Obesity, unspecified; Z68.28 Body mass index [BMI] 28.0-28.9, adult; Z90.49 Acquired absence of other specified parts of digestive tract; Z90.710 Acquired absence of both cervix and uterus; Z79.899 Other long term (current) drug therapy; Z88.0 Allergy status to penicillin; Z91.013 Allergy to seafood; Z91.011 Allergy to milk products; Z88.6 Allergy status to analgesic agent; Z88.5 Allergy status to narcotic agent; Z88.2 Allergy status to sulfonamides; Z88.8 Allergy status to other drugs, medicaments and biological substances
CPT/HCPCS: 36415; 74176; 80053; 81001; 83690; 83735; 85025; 96361; 96374; 96375; 99285; J2270; J2405; J7120

== ENCOUNTER 2024-07-16 18:26 | Emergency (ER) | payer BC ==
[2024-07-16] MEDS: Ondansetron 4 MG Tab.DIS PO ONE (18:47)
[2024-07-16] MEDS: GI Cocktail Oral Solution 30 ML PO ONE (18:48)
[2024-07-16] MEDS ORDERED: Sodium Chloride 0.9% 10 ML Syringe FLUSH PRN (19:14)
[2024-07-16 19:26] LABS: BASOPHILS PERCENT AUTO 0.3 % (0.0-1.0); EOSINOPHILS PERCENT AUTO 2.4 % (1.0-3.0); HEMATOCRIT 43.3 % (37.0-47.0); HEMOGLOBIN 14.7 g/dL (12.0-16.0); LYMPHOCYTES PERCENT AUTO 18.8 % (20.5-50.1); MEAN CORPUSCULAR HEMOGLOBIN 29.3 pg (27.0-34.0); MEAN CORPUSCULAR HGB CONC 33.9 g/dL (33.0-35.0); MEAN CORPUSCULAR VOLUME 86.3 fL (80-100); MONOCYTES PERCENT AUTO 6.6 % (2-8); NEUTROPHILS PERCENT AUTO 71.9 % (42.2-75.2); PLATELET COUNT,PLT 232 10^3/uL (150-450); RED BLOOD CELL COUNT 5.02 10^6/uL (4.2-5.4); WHITE BLOOD CELL COUNT,WBC 8.8 10^3/uL (5.0-10.0)
[2024-07-16] MEDS: fentaNYL 100 MCG/2 ML SDV IVPUSH ONE (19:35)
[2024-07-16 19:43] LABS: INR 0.9 (0.9-1.2); PROTHROMBIN TIME 9.9 SEC (9.0-12.0); PTT,PARTIAL THROMBOPLSTIN TIME 24.7 SEC (22.0-34.0)
[2024-07-16 19:49] LABS: A/G RATIO 1.1; ALANINE AMINOTRANSFERASE,ALT 22 U/L (14-59); ALBUMIN 3.9 g/dL (3.4-5.0); ALKALINE PHOSPHATASE 48 U/L (46-116); ANION GAP 15.4 mEq/L (7-13); ASPARTATE AMNIOTRANSFERASE,AST 14 U/L (15-37); BILIRUBIN TOTAL 0.5 mg/dL (0.2-1.0); BLOOD UREA NITROGEN,BUN 11 mg/dL (7-18); BUN/CREATININE RATIO 13.4 (No establ ref range); CALCIUM 9.9 mg/dL (8.5-10.1); CARBON DIOXIDE,CO2 29 mmol/L (21-32); CHLORIDE,CL 102 mmol/L (98-107); CREATININE 0.82 mg/dL (0.55-1.02); EST CRCL DRUG DOSING (CG) 80.25 mL/min; GLUCOSE RANDOM 119 mg/dL (70-99); LIPASE 60 U/L (16-77); POTASSIUM,K 3.4 mmol/L (3.5-5.1); PROTEIN TOTAL,TP 7.3 g/dL (6.4-8.2); SODIUM,NA 143 mmol/L (136-145)
[2024-07-16 19:51] LABS: C-REACTIVE PROTEIN < 0.50 ng/dL (<=0.50); ESTIMATED GFR 89 mL/min (>=60)
[2024-07-16 19:53] LABS: LACTIC ACID 2.5 mmol/L (0.4-2.0)
[2024-07-16] MEDS: Iopamidol 612 MG/ML 100 ML Bottle IVPUSH ONE (20:08)
[2024-07-16] MEDS: Sodium Chloride 0.9% 1,000 ML IV ONE (20:28)
[2024-07-16] MEDS: Take Home: Ondansetron 4 MG Tab.DIS, 5 Tab Pack PO ONE (21:36)
[2024-07-16] MEDS: Pantoprazole 40 MG Vial IVPUSH ONE (21:37)
== END 2024-07-16 21:50 | disposition home or self-care (01) ==
LOC: DL.ED 18:26
DX: K29.00 Acute gastritis without bleeding (principal); R51.9 Headache, unspecified; Z88.6 Allergy status to analgesic agent; Z88.0 Allergy status to penicillin; Z91.011 Allergy to milk products; Z91.013 Allergy to seafood; Z88.5 Allergy status to narcotic agent; Z88.8 Allergy status to other drugs, medicaments and biological substances; Z79.899 Other long term (current) drug therapy
CPT/HCPCS: 36415; 70450; 74177; 80053; 83605; 83690; 84484; 85025; 85610; 85730; 86140; 93005; 93010; 96361; 96374; 96375; 99284; 99284-25; A9270-GY; J2470; J3010; J7030; Q0162; Q9967

== ENCOUNTER 2024-12-04 18:16 | Emergency (ER) | payer BC ==
[2024-12-04] MEDS: Ondansetron 4 MG/2 ML SDV IVPUSH ONE (19:31)
[2024-12-04 19:38] LABS: BASOPHILS PERCENT AUTO 0.5 % (0.0-1.0); EOSINOPHILS PERCENT AUTO 0.7 % (1.0-3.0); LYMPHOCYTES PERCENT AUTO 10.7 % (20.5-50.1); MONOCYTES PERCENT AUTO 5.0 % (2-8); NEUTROPHILS PERCENT AUTO 83.1 % (42.2-75.2); PLATELET COUNT,PLT 243 10^3/uL (150-450); RED BLOOD CELL COUNT 5.18 10^6/uL (4.2-5.4); WHITE BLOOD CELL COUNT,WBC 10.0 10^3/uL (5.0-10.0)
[2024-12-04 20:00] LABS: A/G RATIO 1.3; ALANINE AMINOTRANSFERASE,ALT 21.0 U/L (14-59); ASPARTATE AMNIOTRANSFERASE,AST 16.0 U/L (15-37); BILIRUBIN TOTAL 0.7 mg/dL (0.2-1.0); BLOOD UREA NITROGEN,BUN 10.0 mg/dL (7-18); CARBON DIOXIDE,CO2 30.0 mmol/L (21-32); CHLORIDE,CL 100.0 mmol/L (98-107); CREATININE 0.65 mg/dL (0.55-1.02); EST CRCL DRUG DOSING (CG) 101.24 mL/min; GLUCOSE RANDOM 106.0 mg/dL (70-99); POTASSIUM,K 3.7 mmol/L (3.5-5.1); PROTEIN TOTAL,TP 7.7 g/dL (6.4-8.2); SODIUM,NA 139.0 mmol/L (136-145)
[2024-12-04 20:03] LABS: LACTIC ACID 1.1 mmol/L (0.4-2.0)
[2024-12-04 20:05] LABS: ESTIMATED GFR 110.0 mL/min (>=60)
[2024-12-04 21:21] LABS: APPEARANCE,URINE CLEAR (CLEAR); GLUCOSE,URINE NEGATIVE (NEGATIVE)
[2024-12-04 21:22] LABS: OCCULT BLOOD,URINE TRACE-INTACT (NEGATIVE)
[2024-12-04] MEDS: Iopamidol 612 MG/ML 100 ML Bottle IVPUSH ONE (21:32)
[2024-12-04 21:49] LABS: EPITHELIAL CELLS,URINE FEW /HPF (NOT SEEN)
[2024-12-05] MEDS: Take Home: Ondansetron 4 MG Tab.DIS, 5 Tab Pack PO ONE (00:43)
== END 2024-12-05 00:30 | disposition home or self-care (01) ==
LOC: DL.ED 18:16
DX: K52.9 Noninfective gastroenteritis and colitis, unspecified (principal); Z88.8 Allergy status to other drugs, medicaments and biological substances; Z88.0 Allergy status to penicillin; Z91.011 Allergy to milk products; Z91.013 Allergy to seafood; Z88.2 Allergy status to sulfonamides; Z88.6 Allergy status to analgesic agent; Z79.899 Other long term (current) drug therapy
CPT/HCPCS: 36415; 74177; 80053; 81001; 83605; 83690; 83735; 85025; 96361; 96374; 96375; 96376; 99283; 99284; J2405; J7030; Q9967; J1171